=== PATIENT | female | born 1990 | race Caucasian/White ===

== ENCOUNTER 2019-06-28 20:59 | Emergency (ER) | payer OTHER ==
[2019-06-28] MEDS ORDERED: Ondansetron INJ* 2 MG/ML VIAL IV ONE (21:51)
[2019-06-28] MEDS ORDERED: Ketorolac INJ* 30 MG/ML 1 ML VIAL IV PUSH ONE (21:52)
--- NOTE | 2019-06-28 21:53 | ED ---
Abdominal Pain/Female - HPI Summary HPI Summary: Pt is a 29 y/o F presenting to the ED with a chief complaint of abd pain in the suprapubic area initially onset this past week. She terminated her with medication provided by [facility], taking the first dose on 06/21, and the 2nd dose on 06/22. She experienced abdominal cramping and heavy vaginal bleeding for approximately 4 hours, but it subsided. Once the heavy bleeding passed, she was able to start using tampons again. On 06/26/19, she states that the pain worsened and the bleeding became heavier again. At 0245 on 06/28/19, she woke with severe abdominal pain described as aching, and also experienced N/V later in the day.She denies any urinary sx. - History of Current Complaint Chief Complaint: EDAbdPain Stated Complaint: ABD PAIN PER PT Time Seen by Provider: 06/28/19 21:38 Hx Obtained From: Patient Onset/Duration: Gradual Onset, Lasting Days, Still Present Timing: Days Severity Initially: Moderate Severity Currently: Moderate Pain Intensity: 6 Pain Scale Used: 0-10 Numeric Location: Suprapubic Radiates: No Character: Other: - aching Aggravating Factor(s): Other: - tampons Alleviating Factor(s): Nothing Associated Signs and Symptoms: Positive: Vaginal Bleeding, Nausea, Vomiting. Negative: Urinary Symptoms Allergies/Adverse Reactions: Allergies Allergy/AdvReac Type Severity Reaction Status Date / Time No Known Allergies Allergy Verified 06/28/19 21:20 PMH/Surg Hx/FS Hx/Imm Hx Previously Healthy: Yes Endocrine/Hematology History: Denies: Hx Diabetes Cardiovascular History: Denies: Hx Hypertension - Surgical History Surgery Procedure, Year, and Place: cholecystectomy Infectious Disease History: Yes Infectious Disease History: Denies: Traveled Outside the [place] in Last 30 Days - Family History Known Family History: Positive: Cardiac Disease - dad [place] - Social History Alcohol Use: Occasionally Hx Substance Use: No Substance Use Type: Reports: None Hx Tobacco Use: No Smoking Status (MU): Never Smoked Tobacco Review of Systems Positive: Abdominal Pain, Vomiting, Nausea Positive: other - vaginal bleeding All Other Systems Reviewed And Are Negative: Yes Physical Exam - Summary Physical Exam Summary: Appearance: Well-appearing young woman, Well-nourished, lying in bed comfortably in no acute distress Skin: Warm, dry, no obvious rash Eyes: sclera anicteric, no conjunctival pallor ENT: mucous membranes moist, pharynx appears normal Neck: Supple, nontender Respiratory: Clear to auscultation, no signs of respiratory distress Cardiovascular: Tachycardic with a rate of 120 No murmurs. Normal distal pulses in tibial and radial bilaterally. Abdomen: There is lower abdominal tenderness with rebound tenderness but no guarding. Abd is silent. Musculoskeletal: Normal, Strength/ROM Intact Neurological: A&Ox3, awake and alert, mentation is normal, speech is fluent and appropriate Psychiatric: affect is normal, does not appear anxious or depressed Triage Information Reviewed: Yes Vital Signs On Initial Exam: Initial Vitals Temp Pulse Resp BP Pulse Ox 98 F 120 16 121/69 98 06/28/19 21:18 06/28/19 21:18 06/28/19 21:18 06/28/19 21:18 06/28/19 21:18 Vital Signs Reviewed: Yes Diagnostics - Vital Signs Vital Signs Temp Pulse Resp BP Pulse Ox 06/28/19 21:18 98 F 120 16 121/69 98 - Laboratory Result Diagrams: 06/28/19 22:18 06/28/19 22:18 Lab Statement: Any lab studies that have been ordered have been reviewed, and results considered in the medical decision making process. - Ultrasound Transvaginal US Ultrasound Interpretation Completed By: Radiologist Summary of Ultrasound Findings: 1. Heterogeneous mass or debris within the endometrial cavity, possibly fibroid. 2. Small amount of fluid within the endometrial cavity. 3. Small amount of free intraperitoneal fluid. ED physician has reviewed this report. Abdominal Pain Fem Course/Dx - Course Course Of Treatment: Pt is a 29 y/o F presenting to the ED with a chief complaint of abd pain in the suprapubic area initially onset this past week. She recently terminated a with medication, but the abd pain has worsened, as well as her vaginal bleeding, with associated N/V. She denies urinary sx. Pt's physical exam shows tachycardia at a rate of 120, abd tenderness in her lower abd with rebound tenderness but no guarding, and her bowel sounds are silent. 2147 - I spoke with Dr. Lo about the pt's present condition, who recommended bloodwork and an ultrasound, as she is concerned that the pt may have retained products of conception. In the ED course, the pt received 2L of fluids, along with 8mg IV Zofran, and 10mg IV Toradol. Her hematology showed WBC of 18.1, RBC of 3.41, Hgb of 11.2, and Hct of 32. Her Potassium is 3.4, AST is 10, Lipase is <10, as well as a Beta HCG of 1518.00. Transvaginal US shows: 1. Heterogeneous mass or debris within the endometrial cavity, possibly fibroid. 2. Small amount of fluid within the endometrial cavity. 3. Small amount of free intraperitoneal fluid. As of 419 , Dr. Lo recommended another dose of the Misoprostol, as well as following up with [facility] or with Dr. Lo in her office in 1-2 days. The pt will be d/c'ed with dx of incomplete . She is stable and agreeable with this plan. - Diagnoses Provider Diagnoses: Incomplete Discharge ED - Sign-Out/Discharge Documenting (check all that apply): Patient Departure Patient Received Moderate/Deep Sedation with Procedure: No - Discharge Plan Condition: Good Disposition: HOME Prescriptions: Ibuprofen TAB* [Motrin TAB* 600 MG] 600 mg PO Q6H PRN #20 tab PRN Reason: Pain - Moderate Referrals: Inge Lo MD [Medical Doctor] - Additional Instructions: Contact [facility] in [place] tomorrow for followup. Dr. Lo's office can also help in terms of followup, but you may want to stay closer to home. - Billing Disposition and Condition Condition: GOOD Disposition: Home - Attestation Statements Document Initiated by Ryan: Yes Documenting Scribe: Emilee Hoffmann Provider For Whom Ryan is Documenting (Include Credential): Zaire Parra MD. Scribe Attestation: Emilee Covarrubias, scribed for Zaire Parra MD. on 07/02/19 at 2045. Scribe Documentation Reviewed: Yes Provider Attestation: The documentation as recorded by the Emilee cruz accurately reflects the service I personally performed and the decisions made by me, Zaire Parra MD. Status of Scribe Document: Viewed Consult Consult: 2147 - I spoke with Dr. Lo about the pt's present condition, who recommended bloodwork and an ultrasound, as she is concerned that the pt may have retained products of conception. 314 - I spoke with Dr. Lo who will be coming to see the pt. As of 419, Dr. Lo recommended another dose of the Misoprostol, as well as following up with [facility] or with Dr. Lo in her office in 1 -2 days.
[2019-06-28] MEDS: NS 0.9% 1000 ML** 2,000 ML IV ONE ×2 (22:07→23:06)
[2019-06-28 22:25] LABS: Hematocrit 32 % (35-47); Hemoglobin 11.2 g/dL (12.0-16.0); Mean Corpuscular HGB Conc 35 g/dL (31-36); Mean Corpuscular Hemoglobin 33 pg (27-31); Mean Corpuscular Volume 94 fL (80-97); Mean Platelet Volume 8.1 fL (7.4-10.4); Platelet Count 186 10^3/uL (150-450); Red Blood Count 3.41 10^6 /uL (3.70-4.87); Red Cell Distribution Width 13 % (10-15); White Blood Count 18.1 10^3/uL (3.5-10.8)
[2019-06-28 22:44] LABS: ALT 15 U/L (7-52); AST 10 U/L (13-39); Albumin 3.8 g/dL (3.2-5.2); Albumin/Globulin Ratio 1.4 (1-3); Alkaline Phosphatase 76 U/L (34-104); Anion Gap 4 mmol/L (2-11); BUN/Creatinine Ratio 15.3 (8-20); Blood Urea Nitrogen 9 mg/dL (6-24); CO2 Carbon Dioxide 28 mmol/L (22-32); Calcium 8.7 mg/dL (8.6-10.3); Chloride 104 mmol/L (101-111); EGFR African American 144.8 (>60); EGFR Non-African American 119.7 (>60); Globulin 2.7 g/dL (2-4); Glucose 113 mg/dL (70-100); Potassium 3.4 mmol/L (3.5-5.0); Sodium 136 mmol/L (135-145); Total Protein 6.5 g/dL (6.4-8.9)
[2019-06-28 22:54] LABS: ABS Basophils 0.1 10^3/ul (0-0.2); ABS Lymphocytes 0.7 10^3/ul (1.0-4.8); ABS Monocytes 0.9 10^3/ul (0-0.8); ABS Neutrophils 16.2 10^3/ul (1.5-7.7); Eosinophil % 0.3 %
[2019-06-29] MEDS ORDERED: Misoprostol TAB* 200 MCG PO ONE (04:18)
[2019-06-29] MEDS ORDERED: Ketorolac INJ* 30 MG/ML 1 ML VIAL IV PUSH ONE (04:19)
[2019-06-29 04:47] VITALS: BP 115/57
--- NOTE | 2019-06-29 05:04 | CONSULT ---
Consult Consult: CC: abd pain/vaginal bleeding HPI: Pt [facility] [place] [facility]. She says she started bleeding within 4hrs after the first dose of medication. It became fairly heavy and lasted about 3 days and then tapered off over the weekend. Early am 2 days ago she began to have increased abdominal pain, n/v, and slightly heavier bleeding but it was not as much as she had before only need to change pads several times/day. She says she was unable to keep food or liquid down until this am. She felt like she had a fever and chills at that time but it has since resolved. Overall she is feeling better now than 2 days ago. The pain is across her lower abdomen and is somewhat cramping. She was taking only tylenol for pain at home. This was an unplanned . She was not using contraception. No current medications other than tylenol NKDA PMH: asthma PSH: Gallbladder removal [employer] Hx: with 4 FT uncomplicated VDs @[facility]. Denies concern for STIs and declines testing. Soc Hx: denies tobacco, MJ or other illicit drug use. Social use of alcohol. VS: Mildly tachycardic, otherwise WNL Gen: NAD, sleeping on my arrival in the room Abd: soft, mild tenderness across lower abdomen, more moderate central and closer to the umbilicus. Small umbilical hernia - not significantly tender. Pelvic: Very minimal CMT, mod tenderness over the uterine fundus. Minimal dark blood on glove. Labs: mildly anemic, elevated WBC Sono: 1.5x1.9cm mass in uterine fundus: fibroid vs retained POC. Otherwise WNL. A: [facility] wks [facility] likely [facility] P[facility]. We discussed the possibility of infection as well but since she is now afebrile and feeling better, I think it is less likely. We discussed options for management including repeat misoprostol dose vs surgical evacuation. She prefers medical management. P: 800mcg misoprostol in ED. Send home with ibuprofen for pain management. Reviewed possibility of continued infection and when to call. Recommend [facility] and following up as scheduled for her appt next friday or earlier prn. She plans IUD insertion for contraception.
== END 2019-06-29 04:46 | disposition home or self-care (01) ==
LOC: ED 20:59
DX: O03.4 Incomplete spontaneous abortion without complication (principal); Z3A.00 Weeks of gestation of pregnancy not specified
CPT/HCPCS: 36415; 76830; 80053; 83690; 84702; 85025; 86850; 86900; 86901; 96361; 96374; 96375; 96376; 99283; A9270-GY; J1885; J2405